=== PATIENT | female | born 1970 | race Two or more races ===

== ENCOUNTER → 2016-10-01 | Outpatient (CLI) | payer SELFPAY | END | disposition disaster alternative care site (69) | LOC: GLAB 11:25 | DX: Z13.220 Encounter for screening for lipoid disorders (principal) ==

== ENCOUNTER → 2016-10-17 | Outpatient (CLI) | payer SELFPAY ==
--- NOTE | ~2016-10-17 | ESTC ---
Cardiac Perfusion Imaging Demographics Patient Name ROSENDA Elizondo Gender Female Patient Number [id number] Race Other Visit Number [id number] Ethnicity Corporate ID Room Number Accession Number [id number] Height Date of 1970 Weight Age 45 year(s) BSA Referring Physician Rose Romo Interpreting Physician Rose Date of study 10/17/2016 Clarissa Supervising /SHELBI Rodas APRN [place] Technologist Cindy Rincon Ordering Physician Stress avionics systems technician Stress ECG Reading Valerie Rodas APRN Nurse Padma Angel RN Physician The procedure was explained in detail to the patient. Risks, complications and alternative treatments were reviewed. Written consent was obtained. Medications Reviewed with Patient prior to Procedure. Procedure Procedure Type: Nuclear Stress Test:Pharmacological, Lexiscan, Cardiolite Stress Test Procedure Start time: 10/17/2016 08:50 Indications: Chest pain. Risk Factors The patient risk factors include:dyslipidemia. Conclusions Summary Perfusion Images: The overall quality of the study is good. Left ventricular cavity is noted to be normal on the stress and rest studies. There is no evidence of abnormal lung activity. The right ventricle is not visualized and cannot be assessed. Stress SPECT images and Rest SPECT images demonstrate homogenous tracer distribution throughout the myocardium. Gated SPECT imaging reveals normal myocardial thickening and wall motion. The left ventricular ejection fraction was calculated to be >70%. Impression ECG portion of stress test is clinically negative for ischemia by diagnostic criteria. Myocardial perfusion imaging is normal. Overall left ventricular systolic function was normal without regional wall motion abnormalities. There are no previous studies for comparison. Stress Protocols Resting ECG Normal sinus rhythm. Pre-stress physical exam: Patient assessed by Tram CUEVAS prior to testing. Chest - CTA Cardio - RRR, S1, S2 Stress Protocol:Pharmacologic - Lexiscan Peak HR:125 bpm HR response: Appropriate Peak BP:148/76 mmHg BP response: Appropriate Predicted HR: 173 bpm HR/BP product:00015 % of predicted HR: 72 Reason for termination:Infusion complete ECG Findings No ECG changes suggestive of ischemia. Arrhythmias No rhythm abnormality. Symptoms Shortness of breath. Chest Burning. Complications Procedure complication: None. Stress Interpretation Appropriate hemodynamic response to Lexiscan. No significant ST-T wave changes with Lexiscan. ECG portion is negative for ischemia by diagnostic criteria. Will correlate with nuclear images. Imaging Results High risk findings Summed scores - Summed stress score: 13 - Summed rest score: 9 - Summed difference score: 4 Stress ejection Ejection fraction:74 % EDV :85 ml ESV :22 ml Stroke volume :63 ml LV mass :117 gr Imaging Protocols Rest Stress Isotope:Tc99m Sestamibi IV Isotope: Tc99m Sestamibi IV Isotope dose:11.2 mCi Isotope dose:33.1 mCi Date:10/17/2016 07:45 Date:10/17/2016 09:27 Technique: SPECT Technique: Gated Supine SPECT Supine Scan Time:45-60 minutes post Scan Time:45-60 minutes post injection injection Procedure Medications - Regadenoson (Lexiscan) 0.4 mg IV over 10-15 sec. I.V. . - Aminophylline 62.5 mg iv push I.V. 62.5 mg. Medications administered per verbal order and read back to physician prior to administration. Medical History Admission Data Admission date: 10/17/2016 Admission Time: 07:30 Hospital Status: Outpatient. Signatures dtt: CLARISSA RAMOS dtd: 10/17/16 0850 Physician Self Edit
== END | disposition disaster alternative care site (69) ==
LOC: GRAD 10-05 07:30
DX: R07.9 Chest pain, unspecified (principal); E78.5 Hyperlipidemia, unspecified
CPT/HCPCS: A9500; J0280; J2785